=== PATIENT | female | born 1985 | race Caucasian/White ===

== ENCOUNTER 2021-04-28 00:49 | Emergency (ER) | payer BC ==
[~2021-04-28] VITALS: Ht 154.9 cm; Wt 48.5 kg
[2021-04-28] MEDS ORDERED: IV NS 0.9% 1,000 ML BAG IV ONE (02:00)
[2021-04-28] MEDS ORDERED: ONDANSETRON HCL/PF 4 MG/2 ML VIAL IVP ONE (02:00)
--- NOTE | 2021-04-28 02:00 | NUR ---
pt bibfamily, pt c/o of stomach pain LUQ, for 1 day. pt placed on monitor. pain 05/05. md notified.
[2021-04-28] MEDS ORDERED: ONDANSETRON HCL/PF 4 MG/2 ML VIAL ONE ×2 (02:07→03:31)
[2021-04-28] MEDS ORDERED: HYDROMORPHONE 1 MG/1 ML DISP.SYRIN ONE ×2 (02:17→03:43)
[2021-04-28 02:18] LABS: BASOPHILS % (AUTO) 0.2 % (0.0-2.0); EOSINOPHILS % (AUTO) 0.1 % (0.0-6.0); HEMATOCRIT 37 % (33-45); LYMPHOCYTES # (AUTO) 0.3 K/uL (0.8-4.8); LYMPHOCYTES % (AUTO) 4.8 % (20.0-44.0); MEAN CORPUSCULAR HGB CONC 33 g/dl (31.0-36.0); MEAN CORPUSCULAR VOLUME 81 fL (82-100); MONOCYTES # (AUTO) 0.2 K/uL (0.1-1.30); NEUTROPHILS # (AUTO) 5.4 K/uL (1.8-8.9); NEUTROPHILS % (AUTO) 90.9 % (43.0-81.0); PLATELET COUNT (AUTO) 209 K/uL (150-450); RED BLOOD CELL COUNT(AUTO) 4.54 MIL/uL (4.0-5.2); WHITE BLOOD COUNT (AUTO) 5.9 K/uL (4.3-11.0)
[2021-04-28] MEDS ORDERED: HYDROMORPHONE 1 MG/1 ML DISP.SYRIN IV ONE ×2 (02:30→04:00)
[2021-04-28 02:34] LABS: CALCIUM, SERUM 7.9 mg/dL (8.5-10.1); CREATININE 0.8 mg/dL (0.6-1.3); POTASSIUM 3.2 mmol/L (3.5-5.1)
[2021-04-28 02:57] LABS: ALBUMIN 4.2 g/dL (3.4-5.0); BILIRUBIN,DIRECT 0.2 mg/dL (0.0-0.2); BILIRUBIN,TOTAL 0.6 mg/dL (0.2-1.0); TOTAL PROTEIN, SERUM 7.4 g/dL (6.4-8.2)
[2021-04-28] MEDS ORDERED: POTASSIUM CHLORIDE 20 MEQ TAB.PRT.SR PO ONE ×2 (03:00→03:04)
--- NOTE | 2021-04-28 03:50 | NUR ---
right ac #20, ivf running and meds given as ordered
[2021-04-28] MEDS ORDERED: DICYCLOMINE HCL 10 MG/5 ML UDC PO ONE (04:00)
[2021-04-28] MEDS ORDERED: ONDANSETRON HCL/PF - ER 4 MG/2 ML VIAL IV ONE (04:00)
--- NOTE | 2021-04-28 04:50 | NUR ---
pt resting quietly at this time. needs attended
[2021-04-28] MEDS ORDERED: DICYCLOMINE HCL 10 MG/5 ML UDC ONE (04:51)
[2021-04-28] MEDS ORDERED: DICYCLOMINE HCL 10 MG CAPSULE PO ONE (04:53)
[2021-04-28] MEDS ORDERED: METOCLOPRAMIDE HCL 10 MG/2 ML VIAL ONE (05:00)
[2021-04-28] MEDS ORDERED: METOCLOPRAMIDE HCL 10 MG/2 ML VIAL IV ONE (05:30)
[2021-04-28] MEDS ORDERED: DICYCLOMINE HCL INJ 20 MG/2 ML AMPUL IM ONE ×2 (05:41→06:00)
--- NOTE | 2021-04-28 06:50 | NUR ---
pt remains with copy of US gallbladder
[2021-04-28] MEDS ORDERED: TRAM-351 PO (07:00)
[2021-04-28] MEDS ORDERED: DICY20TA11 PO (07:00)
[2021-04-28] MEDS ORDERED: ONDA4TAB11 PO (07:00)
--- NOTE | 2021-04-28 07:18 | NUR ---
Patient discharged to home in stable condition. Written and verbal after care instructions given. Patient verbalizes understanding of instruction. IV removed. Catheter intact and site benign. Pressure and 4x4 applied to site. No bleeding noted.
[2021-04-28 07:21] VITALS: BP 112/70
== END 2021-04-28 07:20 | disposition home or self-care (01) ==
LOC: ER 00:49
DX: R10.84 Generalized abdominal pain (principal); R11.2 Nausea with vomiting, unspecified
CPT/HCPCS: 36415; 76705; 80048; 80076; 83690; 84702; 85025; 85730; 96361; 96372; 96374; 96375; 96376; 99285; J0500; J1170 ×2; J2405 ×3; J2765; J7030

== ENCOUNTER 2022-06-02 20:06 | Emergency (ER) | payer BC ==
[~2022-06-02] VITALS: Ht 154.9 cm; Wt 45.4 kg
[~2022-06-02 20:06] MED LIST: DICY20TA11 PO; ONDA4TAB11 PO; TRAM-351 PO
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
--- NOTE | 2022-06-02 20:50 | NUR ---
SEEN BY MARLY CRANDALL WITH ORDERS
--- NOTE | 2022-06-02 20:55 | NUR ---
WAIVER SIGNED BY PATIENT.
[2022-06-02] MEDS ORDERED: ONDANSETRON HCL/PF 4 MG/2 ML VIAL ONE (20:58)
[2022-06-02] MEDS ORDERED: MORPHINE SULFATE INJ 2 MG/ML DISP.SYRIN ONE (20:58)
[2022-06-02] MEDS ORDERED: ONDANSETRON HCL/PF - ER 4 MG/2 ML VIAL IM ONE (21:00)
[2022-06-02] MEDS ORDERED: MORPHINE SULFATE INJ 2 MG/ML DISP.SYRIN IM ONE (21:00)
--- NOTE | 2022-06-02 21:00 | NUR ---
BROUGHT TO CT DEPT
[2022-06-03] MEDS ORDERED: IBUP-1955 PO (00:18)
[2022-06-03] MEDS ORDERED: CYCL10TA9 PO (00:18)
--- NOTE | 2022-06-03 00:45 | NUR ---
Patient discharged to home in stable condition. Written and verbal after care instructions given. Patient verbalizes understanding of instruction.
[2022-06-03 00:46] VITALS: BP 117/73
== END 2022-06-03 00:47 | disposition home or self-care (01) ==
LOC: ER 20:12
DX: S16.1XXA Strain of muscle, fascia and tendon at neck level, initial encounter (principal); S09.90XA Unspecified injury of head, initial encounter; M54.12 Radiculopathy, cervical region; Z79.899 Other long term (current) drug therapy; V49.49XA Driver injured in collision with other motor vehicles in traffic accident, initial encounter; Y93.89 Activity, other specified; Y92.413 State road as the place of occurrence of the external cause; Y99.8 Other external cause status
CPT/HCPCS: 99284; 72125; 96372 ×2; 70450; L0172; J2405 ×2; J2270